=== PATIENT | male | born 2000 | race Caucasian/White ===

== ENCOUNTER 2023-01-01 04:29 | Emergency (ER) | payer BC, SELFPAY ==
[2023-01-01 04:30] VITALS: BP 139/92; PULSE 77; RESP 18; TEMP 36.5; O2SAT 99
--- NOTE | 2023-01-01 04:43 | ED.GENADUL_ITS ---
Discharge Plan Disposition Patient Disposition: Home Condition: Good Discharge Details Clinical Impression: Abscess of axilla, right Primary Care Provider: Unknown,Unknown ED Provider: Osmany Khan Home Meds and New Rx's Prescriptions: New sulfamethoxazole-trimethoprim [Bactrim DS] 800-160 mg tablet 1 tab PO BID Qty: 14 0RF Discharge Instructions Instructions: Abscess (ED) Additional Instructions: At this time you have an abscess that was drained. We did place packing to help with the continued internal drainage. Leave the packing in as long as possible over the next 3 to 4 days. It will eventually fall out on its own. Please take the antibiotic as directed. Keep the area clean and dry. Please take Tylenol and Motrin as needed for pain. You can take 1000 mg of Tylenol every 6 hours and 800 mg of Motrin every 6 hours as needed. These are the maximum doses. If you notice any worsening of your symptoms, or any new symptoms such as vomiting, diarrhea, fever, chills, shortness of breath, chest pain, numbness, weakness, or fainting , please return immediately to the emergency department for reevaluation. Please follow up with your primary care provider as soon as possible for reassessment and reevaluation. As always, it was a pleasure participating in your medical care today. Discharge Orders Other Ambulatory Orders: Wound Aerobic Cult w Gm Stain (Routine) Location: None Selected Ordered By: Osmany Khan Medical Decision Making 22-year-old male with no significant past medical history presents today for lesion in his right axilla. For the past 3 to 4 days he had a small lesion in the right axillary region. He went to the urgent care 2 days ago, at that time it was determined that it was a noninfected cyst. Warm compresses were recommended. Unfortunately since then it has notably increased in size, it has become red, swollen, tense and painful. He denies any drainage. No other complaints at this time. No fever or chills. No other modifying factors. Exam demonstrates a tense lesion, roughly 2 cm in diameter. Circular red and warm. It is in the right axilla. Symptoms appear concerning for mild abscess. We will anesthetize, and perform I&D. We will get Bactrim DS for treatment of MRSA concern. 5:08 AM Area was anesthetized, incised and drained, 5 cc of purulent fluid was removed. Patient tolerated procedure well. We will send fluid for culture. We will start the patient on Bactrim DS. Packing was placed. Discussed red flags for which to return. I have extensively reviewed the treatment plan and discharge instructions with the patient. I have addressed all patient concerns at this time. The patient was made aware of what symptoms to monitor for that would warrant a return to the emergency department. Discussed the plan with the patient, they demonstrate verbal understanding and agreement with our assessment and plan at this time. The documentation in this chart was dictated using [employer] dictation software. Please excuse any dictation errors. HPI General Date/Time Provider Initiated Documentation: 01/01/23 04:33 . HPI Narrative: 22-year-old male with no significant past medical history presents today for lesion in his right axilla. For the past 3 to 4 days he had a small lesion in the right axillary region. He went to the urgent care 2 days ago, at that time it was determined that it was a noninfected cyst. Warm compresses were recommended. Unfortunately since then it has notably increased in size, it has become red, swollen, tense and painful. He denies any drainage. No other complaints at this time. No fever or chills. No other modifying factors. Related Data Home Medications Medication Instructions Recorded Confirmed sulfamethoxazole 800 1 tab PO BID #14 tabs 01/01/23 mg-trimethoprim 160 mg tablet (Bactrim DS) Previous Rx's Medication Instructions Recorded sulfamethoxazole 800 1 tab PO BID #14 tabs 01/01/23 mg-trimethoprim 160 mg tablet (Bactrim DS) Allergies Allergy/AdvReac Type Severity Reaction Status Date / Time No Known Allergies Allergy Verified 12/30/22 17:02 General Stated Complaint: [facility] PORSCHE: 4 Review of Systems All systems reviewed & are unremarkable except as noted in HPI and below PFSH All Active Problems (Updated 01/01/23 @ 04:47 by Osmany Khan DO) Abscess of axilla, right (Acute) Social History Smoking/Tobacco Use Status: Current every day Tobacco Type: e-cigarettes Smoking risk assessment performed?: Yes Alcohol Intake: current Alcohol Intake frequency: a few times a month Alcohol type: beer Drug use: Daily Substance use type: marijuana Housing: apartment Do you feel safe at home: Yes Do you feel safe in your relationship?: Yes Exam Narrative Exam Narrative: 1.Const: Well-nourished, Well-developed, appearing stated age 2.Eyes: PERRL, no conjunctival injection, and symmetrical lids. 3.ENT: Atraumatic external nose and ears. Moist MM. Neck: Symmetric, trachea midline, No thyromegaly. 4.CVS: +S1/S2, No murmurs or gallops. Peripheral pulses 2+ and equal in all extremities. Brisk capillary refill in all extremities. 5.RESP: Unlabored respiratory effort. Clear to auscultation bilaterally. No wheezes rales or rhonchi 6.GI: Soft, Nontender/Nondistended, No hepatosplenomegaly. No guarding or rebound. 7.MSK: Normocephalic/Atraumatic, Extremities w/o deformity or ttp No cyanosis or clubbing, Normal movement of all extremities 8.Skin: Warm, Dry. Patient's right axilla demonstrates a notably large, round, pencil lesion with a diameter of roughly 2 cm. Mild erythema surrounding. Mild fluctuance. 9.Neuro: brand executive II-XII grossly intact. Sensation grossly intact, no focal neurologic deficits. 10.Psych: (AAO) x3. Appropriate mood and affect Course Vital Signs Vital signs: Vital Signs Temperature 36.5 C 01/01/23 04:30 Pulse 77 01/01/23 04:30 Respiratory Rate 18 01/01/23 04:30 Blood Pressure 139/92 H 01/01/23 04:30 Pulse Oximetry 99 01/01/23 04:30 Temperature 36.5 C 01/01/23 04:30 Temperature Source Temporal Artery Scan 01/01/23 04:30 Pulse 77 01/01/23 04:30 Respiratory Rate 18 01/01/23 04:30 Blood Pressure 139/92 H 01/01/23 04:30 Pulse Oximetry 99 01/01/23 04:30 Oxygen Delivery Method Room Air 01/01/23 04:30 Oxygen Flow Rate 0 01/01/23 04:30 Procedures Abscess I/D Site: Upper Extremity Side (if applicable): Right Local Anesthetic: Lidocaine 1% and With Epi Amount of anesthesia used (mL): 5 Technique: Needle Aspiration and Incised with #11 Blade Amount of fluid expressed (mL): 4 Irrigation: Yes Packing used?: Iodoform Complications: Other (none)
[2023-01-01] MEDS: Sulfameth/Trimeth DS, 2 TABS/BTL 1 TAB PO (05:15)
[2023-01-01] MEDS: Ibuprofen 800 MG TAB PO (05:15)
[2023-01-01] MEDS: Acetaminophen 500 MG TAB 1000 MG PO (05:15)
== END 2023-01-01 05:16 | disposition home or self-care (01) ==
PROVIDERS: Emergency Provider Student in an Organized Health Care Education/Training Program
DX: L02.411 Cutaneous abscess of right axilla (principal); F17.290 Nicotine dependence, other tobacco product, uncomplicated
CPT/HCPCS: 10060; 87077; 87186; 99283; 87070; 87205